=== PATIENT | female | born 1965 | race Caucasian/White ===

== ENCOUNTER 2016-11-13 18:17 | Emergency (ER) | payer OTHER ==
[~2016-11-13] VITALS: Ht 152.4 cm; Wt 45.5 kg
[2016-11-13 19:32] LABS: HEMATOCRIT 39.9 % (36.0-46.0); MCH 30.8 PG (29.0-34.0); MCHC 32.8 G/DL (30.0-36.0); MCV 93.7 FL (83-99); MEAN PLAT.VOLUME 9.3 uM^3 (9.5-12.4); PLATELET COUNT 346 K/uL (156-360); RBC DIS.WIDTH-CV 11.9 % (11.8-14.6); RBC DIS.WIDTH-SD 40.7 % (39-53); RED BLOOD COUNT 4.26 M/uL (3.80-5.20); WHITE BLOOD COUNT 6.8 K/uL (4.1-10.2)
[2016-11-13 19:40] LABS: CHLORIDE 110 mEq/L (99-109); SODIUM 144 mEq/L (136-147)
[2016-11-13 19:43] LABS: GLUCOSE 103 mg/dL (70-99)
[2016-11-13 19:44] LABS: ANION GAP 8 MEQ/L (2-14)
[2016-11-13 19:45] LABS: TOTAL BILIRUBIN 0.2 mg/dL (0.0-1.0)
[2016-11-13 19:46] LABS: ALKALINE PHOSPHATASE 80 IU/L (3-129); GFR ESTIMATE (CALCULATED) > 59 mL/min/
[2016-11-13 19:48] LABS: UREA NITROGEN (BUN) 12 mg/dL (9-23)
[2016-11-13 19:56] LABS: QUANTITATIVE HCG < 4.0 MIU/ML
[2016-11-13 22:50] VITALS: BP 115/71
== END 2016-11-13 22:40 | disposition home or self-care (01) ==
LOC: EME 18:17
DX: K59.00 Constipation, unspecified (principal); F81.9 Developmental disorder of scholastic skills, unspecified; R10.9 Unspecified abdominal pain; R19.7 Diarrhea, unspecified; R32 Unspecified urinary incontinence; G80.9 Cerebral palsy, unspecified
CPT/HCPCS: 74000; 80053; 81003; 84702; 85027; 99281; 99284